=== PATIENT | male | born 1945 | race Caucasian/White ===

== ENCOUNTER → 2017-10-29 | Outpatient (CLI) | payer MEDICARE, BC ==
[~2017-10-29] MED LIST: DULO30CA43 PO; INSU100C4 SQ; INSU100V13 SQ; IOHEXOL 300 MG/ML 75 ML VIAL. IV ONE; LINA5TAB4 PO; PANT40TA5 PO; PROP10TA PO; [UNRECOGNIZED DRUG - OTHER]
--- NOTE | 2017-10-29 10:52 | RAD ---
CTA of the chest with contrast, 10/29/2017: History: Elevated d-dimer, shortness of breath, chest pain Multidetector CT imaging was performed following IV bolus injection of iodinated contrast material. Multiplanar reconstructions were produced including coronal and sagittal MIP images. No filling defects are seen in the main or lobar pulmonary arteries to suggest pulmonary emboli. Some of the smaller pulmonary were not optimally opacified. No definite pulmonary emboli are seen. There is moderate calcific plaquing of the thoracic aorta without evidence of aneurysm or dissection. Minimal coronary calcifications are noted. No mediastinal or hilar adenopathy is seen. There is a calcified granuloma in the right upper lobe. A moderate elongated streaky opacity in the right lower lobe probably represents atelectasis, although a component of pneumonia cannot be excluded. There is mild dependent atelectasis in the lungs. Additional scattered linear parenchymal opacities are compatible with scarring and/or atelectasis. No pleural fluid is evident. There is irregularity of the hepatic surface compatible with cirrhosis. An intrahepatic stent is in place extending into the inferior vena cava. This presumably represents a TIPS stent. The spleen is enlarged. There is a small to moderate volume of ascites in the upper abdomen. Mildly prominent lymph nodes at the celiac axis level appear unchanged since 01/11/2016. IMPRESSION: 1. No CT evidence of central pulmonary emboli. 2. Moderate discoid atelectasis in the right lung base. 3. Hepatic cirrhosis with splenomegaly and ascites. 4. TIPS stent in the liver. PQRS Compliance Statement: One or more of the following individualized dose reduction techniques were utilized for this examination: 1. Automated exposure control 2. Adjustment of the mA and/or kV according to patient size 3. Use of iterative reconstruction technique
== END | disposition home or self-care (01) ==
LOC: CT 09:39
PROVIDERS: ATTEND Family Medicine
DX: J98.11 Atelectasis (principal); K74.69 Other cirrhosis of liver; R16.1 Splenomegaly, not elsewhere classified; R18.8 Other ascites; I25.10 Atherosclerotic heart disease of native coronary artery without angina pectoris; J84.10 Pulmonary fibrosis, unspecified
CPT/HCPCS: 71275; Q9967

== ENCOUNTER 2019-08-15 08:49 | Inpatient (IN) | payer MEDICARE, BC ==
[~2019-08-15] VITALS: Ht 188 cm; Wt 114.8 kg
[~2019-08-15 08:49] MED LIST changes: +DULO-4 PO; -DULO30CA43 PO; -IOHEXOL 300 MG/ML 75 ML VIAL. IV ONE
[2019-08-15] MEDS: IV NORMAL SALINE 1,000ML 1,000 ML IV SCH (09:30)
[2019-08-15 09:37] VITALS: BP 122/78
[2019-08-15] MEDS ORDERED: LISI-334 PO (09:57)
[2019-08-15 10:09] LABS: ALBUMIN 2.6 g/dL (3.4-5.0); ALBUMIN/GLOBULIN RATIO 0.6 (1.0-1.7); CREATININE 1.1 mg/dL (0.7-1.3); GFR 65.4; POTASSIUM 3.8 mmol/L (3.5-5.1); TOTAL PROTEIN 6.8 g/dL (6.4-8.2)
[2019-08-15 10:53] LABS: INFLUENZA A PATIENT NEGATIVE (NEGATIVE); INFLUENZA B PATIENT NEGATIVE (NEGATIVE)
[2019-08-15 11:49] VITALS: BP 124/70
[2019-08-15 11:55] LABS: BILIRUBIN,URINE SMALL (NEG); CLARITY,URINE TURBID; COLOR,URINE BROWN; GLUCOSE,URINE 100 mg/dL (NEG)
[2019-08-15 11:56] LABS: UROBILINOGEN,URINE 8 mg/dL (0.2 mg/dL)
[2019-08-15 11:58] LABS: BACTERIA,URINE FEW /HPF (0-FEW); RBC,URINE >40 /HPF (0-2); SQUAMOUS EPITHELIAL CELL,UR FEW /LPF; WBC,URINE >40 /HPF (0-4)
--- NOTE | 2019-08-15 12:02 | EKG ---
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
--- NOTE | 2019-08-15 12:57 | RAD ---
CHEST PA LATERAL History: Shortness of breath Comparison: 10/29/2017 CT angiography of the chest. Findings: The cardiomediastinal silhouette is normal. Pulmonary vasculature is normal. Mild bibasilar linear atelectasis is present. No pleural effusion or pneumothorax is seen. There is no acute bone abnormality. Elevation of the right hemidiaphragm is present. Punctate subdiaphragmatic density again seen on the right. IMPRESSION: Minimal linear atelectasis at the lung bases. Electronically signed by: Donato Chavarria MD (08/15/2019 12:55 PM) [facility]
[2019-08-15] MEDS ORDERED: DEXTROSE 50% 25 GM / 50ML DISP.SYRIN. IV PRN (13:15)
--- NOTE | 2019-08-15 13:16 | RAD ---
Examination: CT ABDOMEN PELVIS WO CONTRAST History: Hematuria Comparison/Correlation: 01/11/2016 CT abdomen and pelvis without contrast Findings: Axial images of the abdomen and pelvis were obtained without contrast. Sagittal and coronal reformatted images were provided. The very superior aspect of the hepatic dome was not fully included which may limit assessment. Minimal linear atelectasis at the posterior right lung base is evident. Minimal perihepatic ascites noted. Hepatic cirrhosis is noted. TIPS noted. Borderline splenomegaly is present with the spleen measuring 14.1 cm longitudinal. Perisplenic varices are noted. Splenorenal varices are evident. No loculated collections about the pancreas.Rtranding of the upper abdominal fat is evident about the pancreas. Renal contours are unremarkable. No radiopaque collecting system I. Urinary bladder is mostly decompressed. Brachytherapy seeds are identified involving the prostate gland. No enlarged abdominal or pelvic lymph nodes. Appendix is normal. Moderate quantity of stool is present throughout the colon. Severe disc space narrowing at L2-3 is present. Neural foraminal narrowing bilaterally at L3-4 is present. Minimal retrolisthesis of L3 in relation to L4. Impression: Mild stranding of the upper abdominal fat about the pancreas noted. Minimal ascites. Correlate for underlying pancreatitis. Hepatic cirrhosis with associated findings of portal hypertension again identified. No radiopaque collecting system calculus. Renal contours are unchanged with no evidence of a mass lesion. Consider further imaging with CT IVP urogram with contrast exam if mastication is a persistent concern. PQRS Compliance Statement: One or more of the following individualized dose reduction techniques were utilized for this examination: 1. Automated exposure control 2. Adjustment of the mA and/or kV according to patient size 3. Use of iterative reconstruction technique Electronically signed by: Donato Chavarria MD (08/15/2019 1:13 PM) [facility]
[2019-08-15 13:34] LABS: BASO # 0.1 x10^3/uL (0.0-0.2); BASO % 1 % (0-3); EOS % 1 % (0-3); HEMATOCRIT 36.7 % (39.0-53.0); HEMOGLOBIN 12.4 g/dL (13.0-17.5); LYMPH # 0.8 x10^3/uL (1.0-4.8); LYMPH % 9 % (24-48); MEAN CORPUSCULAR HEMOGLOBIN 33 pg (25-35); MEAN CORPUSCULAR HGB CONC 34 g/dL (31-37); MEAN CORPUSCULAR VOLUME 96 fL (79-100); MONO # 0.8 x10^3/uL (0.0-1.1); MONO % 8 % (0-9); NEUT # 7.9 x10^3uL (1.8-7.7); NEUT % 82 % (31-73); PLATELET COUNT 70 x10^3/uL (140-400); RED BLOOD COUNT 3.82 x10^6/uL (4.30-5.70); RED CELL DISTRIBUTION WIDTH 15.5 % (11.5-14.5); WHITE BLOOD COUNT 9.7 x10^3/uL (4.0-11.0)
[2019-08-15] MEDS ORDERED: MORPHINE SULFATE 2 MG/ML DISP.SYRIN. IV PRN (13:45)
[2019-08-15 13:50] LABS: AMYLASE 50 U/L (25-115); LIPASE 168 U/L (73-393)
[2019-08-15 14:18] LABS: PLT ESTIMATE DECREASED (ADEQUATE)
[2019-08-15] MEDS: PROPRANOLOL 10 MG TABLET. PO SCH ×2 (15:16→22:53)
[2019-08-15 16:10] VITALS: BP 114/65
[2019-08-15] MEDS ORDERED: INSULIN LISPRO 300 UNITS/3 ML VIAL. SQ SCH (17:00)
[2019-08-15 20:11] VITALS: BP 99/56
[2019-08-15 22:53] VITALS: BP 126/70
[2019-08-15 23:17] LABS: HEMOGLOBIN A1C 6.4 % (4.8-5.6)
[2019-08-16] MEDS: IV NORMAL SALINE 1,000ML 1,000 ML IV SCH (01:56)
[2019-08-16 03:07] VITALS: BP 137/68
[2019-08-16] MEDS: INSULIN GLARGINE SQ SCH (08:24)
[2019-08-16] MEDS: LISINOPRIL 20 MG TABLET PO SCH (08:25)
[2019-08-16] MEDS: PROPRANOLOL 10 MG TABLET. PO SCH ×3 (08:25→20:58)
[2019-08-16] MEDS: LINAGLIPTIN 5 MG TABLET PO SCH (08:35)
[2019-08-16] MEDS: NOVOLOG FLEX SQ SCH ×3 (08:36→17:20)
[2019-08-16] MEDS ORDERED: INSULIN GLARGINE SYRINGE. SQ SCH (09:00)
[2019-08-16] MEDS ORDERED: IOHEXOL 350 MG/ML 100 ML VIAL. IV ONE (09:00)
--- NOTE | 2019-08-16 10:40 | RAD ---
CT ANGIOGRAPHY CHEST INDICATION: Dyspnea. Elevated d-dimer Comparison: Radiograph 08/15/2019. CTA 10/29/2017 TECHNIQUE: Following the uneventful administration of intravenous contrast, 75 cc Isovue-370, axial CT sections were obtained through the lungs and upper abdomen. Multiplanar reconstructions and MIP images were obtained. RS compliance statement: One or more of the following individualized dose reduction techniques were utilized for this examination: 1. Automated exposure control 2. Adjustment of the mA and/or kV according to patient size 3. Use of iterative reconstruction technique FINDINGS: Pulmonary vasculature: No evidence of pulmonary thromboembolic disease. Lungs and Airways: No pulmonary mass or consolidation. Asymmetric elevation of the right hemidiaphragm with right basilar relaxation atelectasis. No abnormality of the central airways. Pleura: The pleural spaces are normal. Heart and Mediastinum: The visualized thyroid is normal in size and attenuation. No axillary or supraclavicular lymphadenopathy. No mediastinal, hilar or retrocrural lymphadenopathy. Normal cardiac size. No pericardial effusion. Coronary artery atherosclerotic disease. Atherosclerosis of the thoracic aorta. Abdomen: Nodular hepatic contour. TIPS. Atherosclerosis of the abdominal aorta. Bones and Soft Tissues: Degenerative changes of the spine. IMPRESSION: 1. No evidence of pulmonary thromboembolic disease. 2. No pulmonary mass or consolidation. Electronically signed by: Yaniv Ramesh MD (08/16/2019 10:37 AM) [facility]
[2019-08-16] MEDS: APIXABAN 5 MG TABLET. PO SCH ×2 (11:28→20:59)
[2019-08-16 11:37] VITALS: BP 136/72
[2019-08-16] MEDS ORDERED: FLU VAX QS 2019-20 (36MOS+)/PF 0.5 ML SYRINGE. VAX IM ONE (13:45)
[2019-08-16 16:11] VITALS: BP 146/73
[2019-08-16 19:47] VITALS: BP 126/53
--- NOTE | 2019-08-16 20:21 | HP ---
ADMIT DATE: 08/15/2019 HISTORY OF PRESENT ILLNESS: A 74-year-old male came in. He had a 3-4 day history of generalized fever of 101.5 and so, also had gross hematuria as well as trouble breathing. He is having coughing spells and fairly getting more ill, getting dehydrated. The patient is a diabetic. He denies chest pain per se, but has had problems, multiple other medical issues that necessitated him coming into the hospital, since he was not progressing with outpatient therapy and progressively getting worse. The patient's current meds include NovoLog FlexPen, Toujeo Solostar, lisinopril, ____ Trulicity, propranolol 30, AndroGel pump. 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 ALLERGIES: None known. PAST SURGICAL HISTORY: Surgical arthroscopic exam of both knees, right total knee by Dr. Hawk, left total knee by Dr. Hawk and TIPS procedure as noted, the patient has also a history of high ammonia levels. FAMILY HISTORY: Mother of diabetes. Otherwise, his children are alive and well. SOCIAL HISTORY: The patient denies smoking, alcohol or drug use. The patient is , full code. REVIEW OF SYSTEMS: The patient has been having night sweats, fever, chills, sweats, despite the use of oral antibiotics and ____. The patient denies any chest pain, shortness of breath, abdominal pain. Denies any melena, hematochezia, hematemesis except for the fact that he is having his blood passed from his urine. PHYSICAL EXAMINATION: GENERAL: This is a pleasant white male, moderate amount of distress, looking quite ill. VITAL SIGNS: The patient's blood pressure 124/70, respiratory rate 18, pulse 74, afebrile, temperature ____ of 101. The patient's oxygen saturation good at 96%. HEENT: The patient's head was atraumatic, normocephalic. Eyes: PERRLA without jaundice. The mouth and throat were normal. NECK: Supple, without JVD or thyromegaly. LUNGS: The patient's lungs were diminished throughout, but basically diminished in the bases, but clear. CARDIOVASCULAR: Regular sinus rhythm, S1, S2, without murmur, rub, thrill, or extra heart sounds. ABDOMEN: Soft. Definite tenderness primarily in the epigastric area, but no rebounding, no guarding. Positive bowel sounds. EXTREMITIES: No clubbing, cyanosis, nor edema. NEUROLOGIC: The patient was alert and oriented x 3. LABORATORY DATA: The patient's white count was 9000, hemoglobin 12 and 36. Chemistries, however, showed an elevated total bilirubin of 3, AST elevated at 41. BNP slightly elevated at 634. Albumin low 2.6. Sodium, potassium, BUN and creatinine normal. Blood sugar was 172. The patient's D-dimer was elevated at 0.9 and therefore he had a scan done, which was negative for pulmonary emboli. His procalcitonin was elevated and his urine did show greater than 40 white blood cells and greater than 40 rbc's as well as specific gravity 1.030. IMPRESSION: Sepsis, urosepsis, dehydration, type 2 diabetes, hematuria, radiation proctitis and elevated D-dimer. PLAN: The patient will be admitted, placed on IV antibiotic therapy. Continue to monitor carefully, make further evaluation on him as indicated per those results and other blood tests are still pending. DEVON HOLT MD DR: CARLOS/fidencio JOB#: [id number] / [id number]
[2019-08-16] MEDS: LACTOBACILLUS RHAMNOSUS GG 1 CAPSULE. PO SCH (20:59)
[2019-08-16] MEDS ORDERED: ZOLPIDEM 5 MG TABLET. PO SCH (21:00)
[2019-08-16 23:55] VITALS: BP 128/73
[2019-08-17 05:53] VITALS: BP 131/70
[2019-08-17 06:16] LABS: BASO % 1 % (0-3); EOS # 0.4 x10^3/uL (0.0-0.7); EOS % 9 % (0-3); HEMATOCRIT 35.2 % (39.0-53.0); LYMPH # 1.3 x10^3/uL (1.0-4.8); LYMPH % 28 % (24-48); MEAN CORPUSCULAR HEMOGLOBIN 33 pg (25-35); MEAN CORPUSCULAR HGB CONC 34 g/dL (31-37); MEAN CORPUSCULAR VOLUME 96 fL (79-100); MONO # 0.5 x10^3/uL (0.0-1.1); MONO % 11 % (0-9); NEUT # 2.4 x10^3uL (1.8-7.7); NEUT % 52 % (31-73); PLATELET COUNT 49 x10^3/uL (140-400); RED BLOOD COUNT 3.65 x10^6/uL (4.30-5.70); RED CELL DISTRIBUTION WIDTH 15.7 % (11.5-14.5); WHITE BLOOD COUNT 4.6 x10^3/uL (4.0-11.0)
[2019-08-17 06:18] LABS: CREATININE 0.9 mg/dL (0.7-1.3); GFR 82.5; POTASSIUM 3.9 mmol/L (3.5-5.1)
[2019-08-17 06:59] LABS: PLT ESTIMATE DECREASED (ADEQUATE); POLYCHROMASIA PRESENT
[2019-08-17] MEDS: LACTOBACILLUS RHAMNOSUS GG 1 CAPSULE. PO SCH (08:10)
[2019-08-17] MEDS: APIXABAN 5 MG TABLET. PO SCH (08:11)
[2019-08-17] MEDS: PROPRANOLOL 10 MG TABLET. PO SCH ×2 (08:11→14:00)
[2019-08-17] MEDS: LISINOPRIL 20 MG TABLET PO SCH (08:11)
[2019-08-17] MEDS: LINAGLIPTIN 5 MG TABLET PO SCH (08:16)
[2019-08-17] MEDS: NOVOLOG FLEX SQ SCH ×2 (08:16→12:15)
[2019-08-17] MEDS: INSULIN GLARGINE SQ SCH (08:16)
[2019-08-17] MEDS ORDERED: levoFLOXacin 750 MG TABLET PO SCH (09:00)
[2019-08-17 10:18] VITALS: BP 136/87
[2019-08-17] MEDS ORDERED: CEPH-264 PO (12:59)
[2019-08-17] MEDS ORDERED: ZOLP5TAB PO (12:59)
[2019-08-17] MEDS ORDERED: LEVO750T31 PO (12:59)
[2019-08-17 14:00] VITALS: BP 136/87
--- NOTE | 2019-08-18 20:57 | DS ---
DATE OF DISCHARGE: 08/17/2019 HOSPITAL COURSE: The patient came in with a temperature upwards of 103 degrees. The patient was thought to be septic, he came in, he was given IV antibiotic therapy. Looked like, he had urosepsis. The patient otherwise made excellent progress during the rest of his hospitalization. His labs showed hemoglobin of 12 and 35. Chemistries were basically stable. Sugar slightly elevated, hemoglobin A1c 6.4. Troponins were negative. Amylase and lipase was negative. His procalcitonin was slightly elevated at 0.38. Albumin low at 2.6, total bilirubin elevated at 3. The patient's D-dimer was elevated. He had a CTA of the chest that showed no evidence of pulmonary emboli, mass, or consolidation in the lungs. The patient made good progress overall. He is seen down at . He has a fatty liver. He has ELAM, history of prostatic cancer, esophageal varices. IMPRESSION: Sepsis, urinary tract infection, organism is still unspecified exactly, it is a Staph aureus bug that was sensitive to trimethoprim/sulfa, which he was on and as a result of that that is what he was placed on as an outpatient. The patient has a history of prostate cancer as well as that of nonalcoholic steatohepatitis, cirrhosis of the liver, portal hypertension, and type 2 diabetes. DISPOSITION: The patient will be discharged home. MEDICATIONS: See MRAD. ACTIVITY: Decreased activity. PLAN: As above. DEVON HOLT MD DR: CARLOS/fidencio JOB#: [id number] / [id number]
== END 2019-08-17 14:33 | disposition home or self-care (01) | DRG 871 ==
LOC: 1 SOUTH 08:58
PROVIDERS: ADMIT Family Medicine; ATTEND Family Medicine
DX: A41.9 Sepsis, unspecified organism (principal); E43 Unspecified severe protein-calorie malnutrition; K76.6 Portal hypertension; N39.0 Urinary tract infection, site not specified; E11.9 Type 2 diabetes mellitus without complications; K62.7 Radiation proctitis; E78.1 Pure hyperglyceridemia; E86.0 Dehydration; I10 Essential (primary) hypertension; K74.60 Unspecified cirrhosis of liver; Z83.3 Family history of diabetes mellitus; Z85.46 Personal history of malignant neoplasm of prostate; M10.9 Gout, unspecified; R31.9 Hematuria, unspecified; Z68.32 Body mass index [BMI] 32.0-32.9, adult
CPT/HCPCS: 36415; 71046; 71275; 74176; 80048; 80053; 81001; 82150; 82550; 82947; 83036; 83540; 83550; 83605; 83690; 83880; 84145; 84484; 85025; 85379; 87086; 87186; 87804; 90471; 90686; 93005; J0696; J1815; J1956; Q9967; J7030

== ENCOUNTER 2019-09-17 10:02 | Inpatient (IN) | payer MEDICARE, BC ==
[~2019-09-17] VITALS: Ht 190.5 cm; Wt 110.9 kg
[~2019-09-17 10:02] MED LIST changes: +CEPH-264 PO; +LEVO750T31 PO; +LISI-334 PO; +ZOLP5TAB PO
[2019-09-17 10:35] VITALS: BP 125/73
[2019-09-17] MEDS ORDERED: ZOLPIDEM 5 MG TABLET. PO PRN (11:00)
[2019-09-17 11:24] LABS: BASO % 1 % (0-3); EOS # 0.4 x10^3/uL (0.0-0.7); EOS % 9 % (0-3); HEMATOCRIT 39.6 % (39.0-53.0); HEMOGLOBIN 13.5 g/dL (13.0-17.5); LYMPH # 1.4 x10^3/uL (1.0-4.8); LYMPH % 35 % (24-48); MEAN CORPUSCULAR HEMOGLOBIN 33 pg (25-35); MEAN CORPUSCULAR HGB CONC 34 g/dL (31-37); MEAN CORPUSCULAR VOLUME 97 fL (79-100); MONO # 0.5 x10^3/uL (0.0-1.1); MONO % 12 % (0-9); NEUT # 1.7 x10^3uL (1.8-7.7); NEUT % 44 % (31-73); PLATELET COUNT 91 x10^3/uL (140-400); RED BLOOD COUNT 4.08 x10^6/uL (4.30-5.70)
[2019-09-17] MEDS ORDERED: INSULIN LISPRO 300 UNITS/3 ML VIAL. SQ SCH (11:30)
[2019-09-17 11:32] LABS: ALBUMIN 2.6 g/dL (3.4-5.0); ALBUMIN/GLOBULIN RATIO 0.6 (1.0-1.7); CREATININE 1.1 mg/dL (0.7-1.3); GFR 65.4; POTASSIUM 4.5 mmol/L (3.5-5.1); TOTAL BILIRUBIN 1.7 mg/dL (0.2-1.0); TOTAL PROTEIN 7.3 g/dL (6.4-8.2)
[2019-09-17] MEDS ORDERED: DEXTROSE 50% 25 GM / 50ML DISP.SYRIN. IV PRN (12:30)
[2019-09-17] MEDS: PROPRANOLOL 10 MG TABLET. PO SCH ×2 (12:52→22:04)
[2019-09-17 12:55] LABS: BILIRUBIN,URINE NEG (NEG); CLARITY,URINE HAZY; COLOR,URINE AMBER; GLUCOSE,URINE NEG (NEG)
[2019-09-17 12:56] LABS: BACTERIA,URINE 0 /HPF (0-FEW); HYALINE CASTS, URINE OCC /HPF; NITRITE,URINE NEG (NEG); SQUAMOUS EPITHELIAL CELL,UR OCC /LPF; UROBILINOGEN,URINE 4 mg/dL (0.2 mg/dL)
[2019-09-17] MEDS: INSULIN LISPRO 300 UNITS/3 ML VIAL. SQ SCH ×2 (12:56→17:00)
--- NOTE | 2019-09-17 13:19 | EKG ---
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
--- NOTE | 2019-09-17 14:41 | RAD ---
Exam performed: 2 views of the chest. Indication: Cough Date of Service: 09/17/2019 11:28 AM . Comparison : Two-view chest from 08/15/2019 Findings: PA and lateral radiographs of the chest reveal a normal cardiomediastinal contour. The lungs are hyperinflated, however clear. No pleural fluid is seen. The visualized osseous structures are unremarkable. Impression: No acute cardiopulmonary process seen. Electronically signed by: Sole Wilhelm MD (09/17/2019 2:38 PM) [facility]
--- NOTE | 2019-09-17 14:47 | RAD ---
Exam performed: CT abdomen and pelvis without contrast. HISTORY: Hematuria. DATE OF SERVICE: 09/17/2019. COMPARISON: CT angiogram abdomen pelvis from 08/15/2019. TECHNIQUE: Contiguous helical acquisitions are obtained through the abdomen and pelvis without IV contrast. Sagittal and coronal reformatted images are obtained and reviewed. FINDINGS: Minimal bibasilar atelectasis. Visualized heart is normal. Unchanged mild hepatic cirrhosis with TIPS shunt noted. There is unchanged splenomegaly with varices of the splenic hilum extending up to the left kidney consistent with previously seen splenorenal varices. Gallbladder is distended. Pancreas appears normal with mild peripancreatic mesenteric stranding. This is unchanged. Both adrenal glands and bilateral kidneys are normal in size with no evidence of hydronephrosis or nephrolithiasis. Small and large bowel loops are nondilated and unremarkable. Appendix is not clearly seen. Urinary bladder is decompressed. The prostate gland, seminal vesicles and rectum appear normal. IMPRESSION: Cirrhosis with portal hypertension and TIPS shunt. Changes are stable. Mild peripancreatic and mesenteric stranding appears unchanged. Pancreatitis is possible however may also be chronic in etiology. Correlate clinically. PQRS Compliance Statement: One or more of the following individualized dose reduction techniques were utilized for this examination: 1. Automated exposure control 2. Adjustment of the mA and/or kV according to patient size 3. Use of iterative reconstruction technique Electronically signed by: Sole Wilhelm MD (09/17/2019 2:44 PM) [facility]
[2019-09-17 15:29] VITALS: BP 119/68
[2019-09-17] MEDS ORDERED: IOHEXOL 350 MG/ML 100 ML VIAL. IV ONE (18:00)
[2019-09-17] MEDS ORDERED: CONTRAST GIVEN MC PRN (18:15)
[2019-09-17] MEDS: GENTAMICIN PER PHARMACY MC PRN (19:21)
[2019-09-17 19:42] VITALS: BP 125/74
[2019-09-17] MEDS ORDERED: NORMAL SALINE IV ONE (20:00)
[2019-09-17] MEDS ORDERED: GENTAMICIN SULFATE IV ONE (20:00)
--- NOTE | 2019-09-17 21:54 | RAD ---
CTA Chest with contrast: Clinical History: Elevated d-dimer Shortness of breath. Axial helical images of the chest were obtained after the administration of Omni 350 cc IV and timed appropriately for a pulmonary arterial study. Conventional axial reconstruction was performed in addition to coronal, sagittal and bilateral oblique MIP (maximum intensity projection). This study was ordered to detect possible pulmonary embolism. There are no filling defects to suggest pulmonary embolism. There is linear opacities in the right lung base. There is no mediastinal or hilar lymphadenopathy. The thoracic aorta appears normal. There is cirrhosis of liver and portal hypertension with varices and mild splenomegaly. There is a portal venous shunt. There is mild portal lymphadenopathy likely reactive. Impression: 1. No evidence of pulmonary embolism. 2. Cirrhosis portal hypertension and portal venous stent. PQRS Compliance Statement: One or more of the following individualized dose reduction techniques were utilized for this examination: 1. Automated exposure control 2. Adjustment of the mA and/or kV according to patient size 3. Use of iterative reconstruction technique Electronically signed by: Jerald Matos III, MD (09/17/2019 9:51 PM) [id number]
[2019-09-17] MEDS: ZOLPIDEM 5 MG TABLET. PO SCH (22:05)
[2019-09-17 22:17] VITALS: BP 120/77
[2019-09-17] MEDS: [UNRECOGNIZED DRUG - OTHER] SQ SCH ×2 (22:24→22:43)
[2019-09-18 05:36] VITALS: BP 146/75
[2019-09-18] MEDS ORDERED: GENTAMICIN RANDOM LEVEL. MC ONE (06:00)
[2019-09-18 06:52] LABS: BASO % 1 % (0-3); EOS # 0.3 x10^3/uL (0.0-0.7); EOS % 8 % (0-3); HEMATOCRIT 37.1 % (39.0-53.0); HEMOGLOBIN 12.9 g/dL (13.0-17.5); LYMPH # 1.3 x10^3/uL (1.0-4.8); LYMPH % 33 % (24-48); MEAN CORPUSCULAR HEMOGLOBIN 33 pg (25-35); MEAN CORPUSCULAR HGB CONC 35 g/dL (31-37); MEAN CORPUSCULAR VOLUME 96 fL (79-100); MONO # 0.5 x10^3/uL (0.0-1.1); MONO % 12 % (0-9); NEUT # 1.8 x10^3uL (1.8-7.7); NEUT % 46 % (31-73); PLATELET COUNT 81 x10^3/uL (140-400); RED BLOOD COUNT 3.85 x10^6/uL (4.30-5.70); WHITE BLOOD COUNT 3.9 x10^3/uL (4.0-11.0)
[2019-09-18 06:58] LABS: CALCIUM 7.6 mg/dL (8.5-10.1); POTASSIUM 4.7 mmol/L (3.5-5.1)
[2019-09-18] MEDS: FUROSEMIDE 20 MG/2 ML VIAL IVP SCH (08:49)
[2019-09-18] MEDS: PROPRANOLOL 10 MG TABLET. PO SCH ×3 (08:49→20:08)
[2019-09-18] MEDS: LISINOPRIL 20 MG TABLET PO SCH (08:49)
[2019-09-18] MEDS: [UNRECOGNIZED DRUG - OTHER] SQ SCH ×2 (08:50→20:10)
[2019-09-18] MEDS ORDERED: levoFLOXacin 750 MG TABLET PO SCH (09:00)
[2019-09-18] MEDS: INSULIN LISPRO 300 UNITS/3 ML VIAL. SQ SCH ×3 (09:00→17:21)
[2019-09-18] MEDS ORDERED: LINAGLIPTIN 5 MG TABLET PO SCH (09:00)
[2019-09-18] MEDS ORDERED: FUROSEMIDE 20 MG TABLET PO SCH (09:00)
[2019-09-18 11:20] VITALS: BP 125/68
[2019-09-18] MEDS: GENTAMICIN PER PHARMACY MC PRN (13:33)
[2019-09-18 14:30] VITALS: BP 111/61
[2019-09-18 18:43] VITALS: BP 122/69
[2019-09-18] MEDS ORDERED: NORMAL SALINE IV SCH (20:00)
[2019-09-18] MEDS ORDERED: GENTAMICIN SULFATE IV SCH (20:00)
[2019-09-18] MEDS: ZOLPIDEM 5 MG TABLET. PO SCH (20:08)
--- NOTE | 2019-09-18 21:27 | PN ---
DATE: SUBJECTIVE: A 74-year-old male came in. Urine from outside cultures showed he had a MRSA urinary tract infection. He had been having hematuria and blood filled discharge from his urination. The patient was admitted to the hospital for IV antibiotic therapy and further evaluation on his MRSA infection. OBJECTIVE: VITAL SIGNS: Blood pressure 110/60, respiratory rate 20, pulse 70, afebrile. GENERAL: The patient is alert and oriented. LUNGS: Diminished throughout, but clear. CARDIOVASCULAR: Stable. ABDOMEN: Soft. The patient is making good progress overall. IMPRESSION: Urinary tract infection with Methicillin-resistant Staphylococcus aureus. Apparently, he has had this infection before that has not responded to outpatient therapy. We will continue on IV antibiotic therapy for now and try to get additional antibiotic coverage when he is ready to be discharged. DEVON HOLT MD DR: CARLOS/fidencio JOB#: [id number] / [id number]
[2019-09-18 23:00] VITALS: BP 113/70
[2019-09-19 05:50] VITALS: BP 131/76
[2019-09-19] MEDS: INSULIN LISPRO 300 UNITS/3 ML VIAL. SQ SCH ×2 (08:00→12:00)
[2019-09-19] MEDS: PROPRANOLOL 10 MG TABLET. PO SCH (08:11)
[2019-09-19] MEDS: LISINOPRIL 20 MG TABLET PO SCH (08:12)
[2019-09-19] MEDS: [UNRECOGNIZED DRUG - OTHER] SQ SCH (08:12)
[2019-09-19] MEDS: FUROSEMIDE 20 MG/2 ML VIAL IVP SCH (08:23)
[2019-09-19 08:28] LABS: INFLUENZA A PATIENT NEGATIVE (NEGATIVE); INFLUENZA B PATIENT NEGATIVE (NEGATIVE)
[2019-09-19] MEDS ORDERED: FUROSEMIDE 40 MG TABLET PO SCH (09:00)
[2019-09-19] MEDS ORDERED: LINE600T15 PO (09:02)
[2019-09-19 10:39] VITALS: BP 120/66
--- NOTE | 2019-09-21 10:49 | DS ---
DATE OF DISCHARGE: 09/19/2019 HOSPITAL COURSE: A 74-year-old male came in through the office. The patient had MRSA infection. He was feeling ill. He had not responded to oral antibiotics as an outpatient. The patient made good progress. He was placed on IV gentamicin and Levaquin, which seemed to really improve the patient's outcome. He made good progress during the rest of his hospitalization. He was discharged. Since it was MRSA, he was placed on Zyvox for further evaluation. He had a positive D-dimer. CTA was negative, just some cirrhosis and portal hypertension, portal venous stent, which he has had obviously before. Chest x-ray was unremarkable and basic labs were also unremarkable showing zauvzwae-zf-kxlina protein malnutrition. Otherwise, the patient made good progress during the rest of his hospitalization and was discharged home for further assessment as an outpatient. IMPRESSION: Systemic inflammatory response syndrome, urinary tract infection with methicillin-resistant Staphylococcus aureus, history of portal hypertension and cirrhosis, sjqdrryt-ox-ykbawj protein malnutrition, hyperbilirubinemia. PLAN: The patient will be discharged home. Regular diet, decreased activity, and have him follow up accordingly for repeat urine test. DEVON HOLT MD DR: CARLOS/fidencio JOB#: [id number] / [id number]
== END 2019-09-19 12:30 | disposition home or self-care (01) | DRG 689 ==
LOC: 1 SOUTH 10:02
PROVIDERS: ADMIT Family Medicine; ATTEND Family Medicine
DX: N39.0 Urinary tract infection, site not specified (principal); E43 Unspecified severe protein-calorie malnutrition; R65.10 Systemic inflammatory response syndrome (SIRS) of non-infectious origin without acute organ dysfunction; B95.62 Methicillin resistant Staphylococcus aureus infection as the cause of diseases classified elsewhere; Z68.30 Body mass index [BMI] 30.0-30.9, adult
CPT/HCPCS: 36415; 71046; 71275; 74176; 80048; 80053; 80170; 81001; 82150; 82550; 83605; 83690; 83880; 84484; 85025; 85379; 85610; 87804; 93005; J1580; J1815; J1956; Q9967

== ENCOUNTER → 2019-11-28 | Outpatient (CLI) | payer MEDICARE, BC ==
[~2019-11-28] MED LIST changes: +LINE600T15 PO
--- NOTE | 2019-11-28 10:19 | RAD ---
Right lower extremity venous duplex study 11/28/2019 10:16 AM Clinical History: Right lower extremity edema Technique: Using a combination of real time ultrasound imaging and color-flow and pulse Doppler imaging techniques, including spectral analysis, graded compression and augmentation, duplex evaluation of the deep venous system of the right lower extremity was performed. Multiple images were obtained. Findings: There is no sonographic evidence of deep venous thrombosis involving the visualized deep venous structures of the right lower extremity Impression: No evidence of deep venous thrombosis involving the right lower extremity Electronically signed by: Britton Hensley MD (11/28/2019 10:16 AM) [facility]
== END | disposition home or self-care (01) ==
LOC: US 09:44
PROVIDERS: ATTEND Internal Medicine Hematology & Oncology
DX: R22.41 Localized swelling, mass and lump, right lower limb (principal)
CPT/HCPCS: 93971

== ENCOUNTER → 2020-09-13 | Outpatient (CLI) | payer MEDICARE, BC ==
[~2020-09-13] MED LIST changes: -PANT40TA5 PO; +PANT40TA6 PO
[2020-09-13 12:51] LABS: BASO % 0 % (0-3); EOS # 0.1 x10^3/uL (0.0-0.7); EOS % 4 % (0-3); HEMATOCRIT 34.9 % (39.0-53.0); HEMOGLOBIN 11.5 g/dL (13.0-17.5); LYMPH # 0.8 x10^3/uL (1.0-4.8); LYMPH % 23 % (24-48); MEAN CORPUSCULAR HEMOGLOBIN 33 pg (25-35); MEAN CORPUSCULAR HGB CONC 33 g/dL (31-37); MEAN CORPUSCULAR VOLUME 99 fL (79-100); MONO # 0.4 x10^3/uL (0.0-1.1); MONO % 12 % (0-9); NEUT # 2.1 x10^3uL (1.8-7.7); NEUT % 61 % (31-73); PLATELET COUNT 89 x10^3/uL (140-400); RED BLOOD COUNT 3.53 x10^6/uL (4.30-5.70); RED CELL DISTRIBUTION WIDTH 15.5 % (11.5-14.5); WHITE BLOOD COUNT 3.4 x10^3/uL (4.0-11.0)
[2020-09-13 12:58] LABS: CALCIUM 8.7 mg/dL (8.5-10.1); CREATININE 1.1 mg/dL (0.7-1.3); GFR 65.3; POTASSIUM 4.2 mmol/L (3.5-5.1)
--- NOTE | 2020-09-13 13:04 | RAD ---
PQRS Compliance Statement: One or more of the following individualized dose reduction techniques were utilized for this examination: 1. Automated exposure control 2. Adjustment of the mA and/or kV according to patient size 3. Use of iterative reconstruction technique CT ABDOMEN PELVIS WO CONTRAST Clinical Indication: Reason: GENERALIZED ABDOMINAL PAIN, PELVIC SWELLING Comparison: CT abdomen and pelvis without contrast, September 17, 2019. Technique: Helical CT imaging of the abdomen and pelvis is performed without IV or oral contrast. Findings: Evaluation of solid organs and bowel is limited without oral and IV contrast, decreasing sensitivity for detection of pathology. Chronic atelectasis or scarring in the right lung base. Great vessels normal caliber. Coronary artery disease. Cardiac size normal. Mild mitral annular calcification. Cirrhosis, portal hypertension, and TIPS shunt redemonstrated. There is splenorenal shunt. Interval development of moderate abdominal and pelvic ascites. The gallbladder pancreas, and adrenal glands are normal. Atherosclerotic abdominal aorta, no aneurysm. There is no hydronephrosis. There is no obvious abnormality of the stomach. There is no dilated small bowel. The appendix is normal. There is no colon wall thickening. There is induration of the mesentery. Urinary bladder is normal. There are prostate fiducials. Fluid in a small right inguinal hernia. Grade 1 retrolisthesis of L3 on L4 and L2 on L3. Vacuum disc phenomenon lower lumbar spine. Disc space narrowing and endplate irregularity of L2/L3. IMPRESSION: 1. Interval development of moderate abdominal and pelvic ascites. Cannot exclude TIPS dysfunction. 2. Redemonstrated cirrhosis, portal hypertension, splenorenal varices, and TIPS shunt. 3. Chronic atelectasis or scarring in the right lung base. Electronically signed by: Myron Kaur MD (09/13/2020 1:01 PM) [id number]
[2020-09-13 13:07] LABS: BACTERIA,URINE 0 /HPF (0-FEW); BILIRUBIN,URINE MOD (NEG); CLARITY,URINE CLEAR; COLOR,URINE AMBER; GLUCOSE,URINE NEG (NEG); NITRITE,URINE POS (NEG); RBC,URINE RARE /HPF (0-2); WBC,URINE 0 /HPF (0-4)
[2020-09-13 13:10] LABS: ALBUMIN 2.8 g/dL (3.4-5.0); ALBUMIN/GLOBULIN RATIO 0.6 (1.0-1.7); TOTAL BILIRUBIN 2.4 mg/dL (0.2-1.0); TOTAL PROTEIN 7.6 g/dL (6.4-8.2)
== END ==
LOC: CT 11:37
PROVIDERS: ATTEND Family Medicine
DX: K40.90 Unilateral inguinal hernia, without obstruction or gangrene, not specified as recurrent (principal); I70.0 Atherosclerosis of aorta; I10 Essential (primary) hypertension; J98.11 Atelectasis; R19.09 Other intra-abdominal and pelvic swelling, mass and lump; Z79.899 Other long term (current) drug therapy
CPT/HCPCS: 36415; 74176; 80053; 81001; 82977; 83690; 83880; 85025; 85379; 87086

== ENCOUNTER 2020-10-01 10:34 | Emergency (ER) | payer MEDICARE, BC ==
[~2020-10-01] VITALS: Ht 190.5 cm; Wt 115.5 kg
--- NOTE | 2020-10-01 10:57 | PHYS DOC ---
Past History Past Medical History: Cancer, Diabetes Past Surgical History: Knee Replacement Smoking: Non-smoker Alcohol Use: None Drug Use: None Adult General Chief Complaint Chief Complaint: SHORTNESS OF BREATH HPI HPI Patient is a 75yo male presenting via POV for SHOB. He was sent by PCP, has known history of liver cirrhosis from what patient states is from fatty liver disease. He is established with GI team at [facility] and had first paracentesis ever performed at [facility] ~2 months ago. He states ~6.5L were drawn off. He reports worsening abdominal ascites that has been causing him more shortness of breath for past 72 hours. He discussed case with his PCP who advised he seek care at his local ER for evaluation and paracentesis. No fever, no URI-like symptoms, no AP or changes in bladder or bowel function Review of Systems Review of Systems Fourteen body systems of review of systems have been reviewed. See HPI for pertinent positives and negative responses, other robbins all other systems are negative, non-pertinent or non-contributory Allergies Allergies Allergies Coded Allergies Type Severity Reaction Last Updated Verified I S O L A T I O N *CONTACT* Allergy Unknown 10/01/20 Yes NKMA Allergy Unknown 10/01/20 Yes Physical Exam Physical Exam Constitutional: Well developed, well nourished, no acute distress, non-toxic appearance. HENT: Normocephalic, atraumatic, bilateral external ears normal, oropharynx moist, no oral exudates, nose normal. Eyes: PERRLA, EOMI, conjunctiva normal, no discharge. Neck: Normal range of motion, no tenderness, supple, no stridor. Cardiovascular: Heart rate regular, sinus rhythm, no murmurs rubs or gallops Lungs & Thorax: Inc work of breathing, no resp distress, mild accessory muscle usage noted in abdomen. CTAB Abdomen: Bowel sounds normal, prominent and fluid filled consistent with ascites, positive fluid wave, no tenderness, no masses, no pulsatile masses. Nonsurgical abdomen, no peritoneal signs Skin: Warm, dry, no erythema, no rash. Back: No tenderness, no CVA tenderness. Extremities: No tenderness, no cyanosis, no clubbing, ROM intact, no edema. Neurologic: Alert and oriented X 3, grossly normal motor & sensory function, no focal deficits noted. Psychologic: Affect normal, judgement normal, mood normal. Current Patient Data Vital Signs Vital Signs Date Time Temp Pulse Resp B/P (MAP) Pulse Ox O2 Delivery O2 Flow Rate FiO2 10/01/20 14:32 97.5 73 27 159/86 (110) 96 Room Air Lab Results Laboratory Tests Test 10/01/20 11:24 White Blood Count 2.4 x10^3/uL (4.0-11.0) Red Blood Count 3.38 x10^6/uL (4.30-5.70) Hemoglobin 11.1 g/dL (13.0-17.5) Hematocrit 33.6 % (39.0-53.0) Mean Corpuscular Volume 99 fL (79-100) Mean Corpuscular Hemoglobin 33 pg (25-35) Mean Corpuscular Hemoglobin Concent 33 g/dL (31-37) Red Cell Distribution Width 14.9 % (11.5-14.5) Platelet Count 68 x10^3/uL (140-400) Neutrophils (%) (Auto) 59 % (31-73) Lymphocytes (%) (Auto) 22 % (24-48) Monocytes (%) (Auto) 13 % (0-9) Eosinophils (%) (Auto) 6 % (0-3) Basophils (%) (Auto) 0 % (0-3) Neutrophils # (Auto) 1.4 x10^3uL (1.8-7.7) Lymphocytes # (Auto) 0.5 x10^3/uL (1.0-4.8) Monocytes # (Auto) 0.3 x10^3/uL (0.0-1.1) Eosinophils # (Auto) 0.1 x10^3/uL (0.0-0.7) Basophils # (Auto) 0.0 x10^3/uL (0.0-0.2) Segmented Neutrophils % 60 % (35-66) Band Neutrophils % 2 % (0-9) Lymphocytes % 22 % (24-48) Atypical Lymphocytes % (Manual) 3 % (0-0) Monocytes % 7 % (0-10) Eosinophils % 6 % (0-5) Platelet Estimate Decreased (ADEQUATE) Polychromasia Slight Anisocytosis Slight Prothrombin Time 12.5 SEC (9.4-11.4) Prothromb Time International Ratio 1.2 (0.9-1.1) Activated Partial Thromboplast Time 25 SEC (23-33) Sodium Level 140 mmol/L (136-145) Potassium Level 4.3 mmol/L (3.5-5.1) Chloride Level 106 mmol/L (98-107) Carbon Dioxide Level 28 mmol/L (21-32) Anion Gap 6 (6-14) Blood Urea Nitrogen 16 mg/dL (8-26) Creatinine 1.1 mg/dL (0.7-1.3) Estimated GFR (Cockcroft-Gault) 65.3 BUN/Creatinine Ratio 15 (6-20) Glucose Level 173 mg/dL (70-99) Calcium Level 8.9 mg/dL (8.5-10.1) Total Bilirubin 2.2 mg/dL (0.2-1.0) Aspartate Amino Transf (AST/SGOT) 46 U/L (15-37) Alanine Aminotransferase (ALT/SGPT) 36 U/L (16-63) Alkaline Phosphatase 100 U/L (46-116) Troponin I Quantitative 0.018 ng/mL (0-0.055) Total Protein 7.1 g/dL (6.4-8.2) Albumin 2.6 g/dL (3.4-5.0) Albumin/Globulin Ratio 0.6 (1.0-1.7) EKG EKG EKG ordered and interpreted by myself at 1125 hrs. as sinus rhythm at 75 bpm, unremarkable intervals, left axis deviation, no acute ischemic findings, no STEMI Radiology/Procedures Radiology/Procedures CHEST AP ONLY History: Reason: Shortness of breath/ Spl. Instructions: / History: Comparison: September 17, 2019 Findings: Low lung volumes. Patchy bibasilar opacities. No pleural effusion. No pneumothorax. Normal heart size. Mild elevation of the right hemidiaphragm, unchanged. Impression: 1. Low lung lines with patchy bibasilar opacities, likely atelectasis. Electronically signed by: Jose Raul Thomas DO (10/01/2020 11:46 AM) [id number] Heart Score Risk Factors: Risk Factors: DM, Current or recent (<one month) smoker, HTN, HLP, family history of CAD, obesity. Risk Scores: Risk Factors: DM, Current or recent (<one month) smoker, HTN, HLP, family history of CAD, obesity. Course & Med Decision Making Course & Med Decision Making Pertinent Labs and Imaging studies reviewed. (See chart for details) Patient without fever or other systemic sxs, no concern for SBP needing paracentesis. I fear given appearance he will require large volume to be drawn off. I contacted GI team and subsequent hospitalist team at [facility] who agreed need for transfer and admission for paracentesis and monitoring after procedure as indicated. PCP updated on plan of care and amenable. I updated patient on plan of care and he was amenable. He requested traveling to [facility] via POV, he has full capacity and able to weigh risks and benefits after lengthy discussion. He ultimately left our facilty for transport to [facility] via POV in stable condition Dragon Disclaimer Dragon Disclaimer This electronic medical record was generated, in whole or in part, using a voice recognition dictation system. Departure Departure: Impression: Primary Impression: Cirrhosis of liver with ascites Disposition: 02 DC/TRF OTHER SHORT TERM HOS ([facility]) Admitting Physician: Other (Dr Lakhani) Condition: STABLE Referrals: DEVON HOLT MD (PCP) DULCE ROJAS DO Oct 01, 2020 10:57
[2020-10-01 11:39] LABS: BASO % 0 % (0-3); EOS # 0.1 x10^3/uL (0.0-0.7); EOS % 6 % (0-3); HEMATOCRIT 33.6 % (39.0-53.0); HEMOGLOBIN 11.1 g/dL (13.0-17.5); LYMPH # 0.5 x10^3/uL (1.0-4.8); LYMPH % 22 % (24-48); MEAN CORPUSCULAR HEMOGLOBIN 33 pg (25-35); MEAN CORPUSCULAR HGB CONC 33 g/dL (31-37); MEAN CORPUSCULAR VOLUME 99 fL (79-100); MONO # 0.3 x10^3/uL (0.0-1.1); MONO % 13 % (0-9); NEUT # 1.4 x10^3uL (1.8-7.7); NEUT % 59 % (31-73); PLATELET COUNT 68 x10^3/uL (140-400); RED BLOOD COUNT 3.38 x10^6/uL (4.30-5.70); RED CELL DISTRIBUTION WIDTH 14.9 % (11.5-14.5); WHITE BLOOD COUNT 2.4 x10^3/uL (4.0-11.0)
[2020-10-01 11:46] LABS: CALCIUM 8.9 mg/dL (8.5-10.1); CREATININE 1.1 mg/dL (0.7-1.3); GFR 65.3; POTASSIUM 4.3 mmol/L (3.5-5.1)
--- NOTE | 2020-10-01 11:48 | RAD ---
CHEST AP ONLY History: Reason: Shortness of breath/ Spl. Instructions: / History: Comparison: September 17, 2019 Findings: Low lung volumes. Patchy bibasilar opacities. No pleural effusion. No pneumothorax. Normal heart size. Mild elevation of the right hemidiaphragm, unchanged. Impression: 1. Low lung lines with patchy bibasilar opacities, likely atelectasis. Electronically signed by: Jose Raul Thomas DO (10/01/2020 11:46 AM) [id number]
[2020-10-01 11:52] LABS: ALBUMIN 2.6 g/dL (3.4-5.0); ALBUMIN/GLOBULIN RATIO 0.6 (1.0-1.7); TOTAL BILIRUBIN 2.2 mg/dL (0.2-1.0); TOTAL PROTEIN 7.1 g/dL (6.4-8.2)
[2020-10-01 12:10] LABS: % ATYL 3 % (0-0); % BANDS 2 % (0-9); % EOS 6 % (0-5); % LYMPHS 22 % (24-48); % MONOS 7 % (0-10); % SEGS 60 % (35-66); PLT ESTIMATE DECREASED (ADEQUATE)
[2020-10-01 12:14] LABS: ANISOCYTOSIS SLIGHT; POLYCHROMASIA SLIGHT
[2020-10-01 14:32] VITALS: BP 159/86
--- NOTE | 2020-10-01 14:48 | EKG ---
[address] [address] Test Date: 2020-10-01 Test Time: 11:21:36 Pat Name: YOUSUF MCKOY Department: Room: Gender: M Strategy Execution Consultant: SALINAS : 1945 Requested By: DULCE ROJAS Order Number: [id number] Reading MD: Virgilio Dooley Measurements Intervals Gravity Rate: 74 P: 16 IL: 144 QRS: -29 QRSD: 86 T: 10 QT: 400 QTc: 444 Interpretive Statements SINUS RHYTHM LEFTWARD AXIS Electronically Signed On 10-02-2020 10:24:58 MANAGER FASHION by Virgilio Dooley
== END 2020-10-01 14:39 | disposition short-term general hospital (02) ==
LOC: ER 10:34
DX: K74.69 Other cirrhosis of liver (principal); R06.02 Shortness of breath; E11.9 Type 2 diabetes mellitus without complications; Z85.9 Personal history of malignant neoplasm, unspecified; Z98.890 Other specified postprocedural states; Z88.8 Allergy status to other drugs, medicaments and biological substances
CPT/HCPCS: 36415; 71045; 80053; 84484; 85007; 85025; 85610; 85730; 93005; 99285

== ENCOUNTER 2020-11-22 04:22 | Emergency (ER) | payer MEDICARE, BC ==
[~2020-11-22] VITALS: Ht 190.5 cm; Wt 115.5 kg
[2020-11-22 04:22] VITALS: BP 140/77
--- NOTE | 2020-11-22 04:49 | PHYS DOC ---
Past History Past Medical History: Cancer, Depression, Diabetes, Liver Disease (Ascities), Other Additional Past Medical Histor: PROSTATE CA 6 YEARS AGO, HAD RADIATION [place] (LINDSEY JACKSON DO) Past Surgical History: Knee Replacement (LINDSEY JACKSON DO) Smoking: Non-smoker Alcohol Use: None Drug Use: None (LINDSEY JACKSON DO) General Adult EDM: Chief Complaint: SHORTNESS OF BREATH HPI: HPI: 75-year-old male presents with report of shortness of breath that occurred upon waking this morning to go to the restroom. Patient was recently diagnosed with COVID-19 on 11/16/2020. Patient does have a history of liver disease with cirrhosis requiring paracentesis. Patient reports last paracentesis was approximately 1 week ago at [facility]. Patient reports his abdomen does not feel overly distended and does not think he needs paracentesis at this time. Reports subjective fever and chills. Denies trauma. (LINDSEY JACKSON DO) Review of Systems: Review of Systems: Constitutional: Reports fever and chills and generalized malaise Eyes: Denies redness or eye pain HENT: Denies nasal congestion or sore throat Respiratory: Reports cough and shortness of breath Cardiovascular: Denies chest pain or palpitations GI: Denies abdominal pain, nausea, or vomiting : Denies dysuria or hematuria Musculoskeletal: Denies back pain or joint pain Integument: Denies rash or skin lesions Neurologic: Denies headache, focal weakness or sensory changes Complete systems were reviewed and found to be within normal limits, except as documented in this note. (LINDSEY JACKSON DO) Allergies: Allergies: Allergies Coded Allergies Type Severity Reaction Last Updated Verified I S O L A T I O N *CONTACT* Allergy Unknown 10/01/20 Yes NKMA Allergy Unknown 10/01/20 Yes (LINDSEY JACKSON DO) Physical Exam: PE: Constitutional: Well developed, well nourished, no acute distress, non-toxic appearance HENT: Normocephalic, atraumatic Eyes: PERRL, EOMI, conjunctiva normal, no discharge Neck: Normal range of motion, no tenderness, supple Lungs & Thorax: Mild respiratory distress, increased work of breathing, equal chest rise and fall Abdomen: Soft, mildly distended abdomen, nontender Skin: Warm, dry, no erythema, no rash Back: No tenderness, no CVA tenderness Extremities: No tenderness, ROM intact, no edema Neurologic: Alert and oriented X 3, no focal deficits noted Psychologic: Affect normal, judgment normal (LINDSEY JACKSON DO) EKG: EKG: @ 0516 NSR at 88 bpm, some baseline artifact noted primarily to aVL, NO ST elevation, LAFB, QRS 86ms, QT/QTc 396/483ms (LINDSEY JACKSON DO) Radiology/Procedures: Radiology/Procedures: [] (LINDSEY JACKSON DO) Course & Med Decision Making: Course & Med Decision Making Pertinent Labs and Imaging studies reviewed. (See chart for details) Patient presents via EMS with report of dyspnea with exertion upon waking this morning. Patient with history of recently testing positive for COVID-19. Patient also with history of liver disease requiring paracentesis. Reports last paracentesis approximately 1 week ago. Abdomen does not appear to require paracentesis at this time. Patient was found to be hypoxic upon EMS arrival. Improved with supplemental O2. EKG stable. Labs obtained and posted to chart. Chronic pancytopenia again noted. Ammonia 62. Slightly elevated troponin noted. ASA given. CTA chest pending. 0600- Sign out given to Dr. Cid for further evaluation and treatment. Discussed current findings and plan with patient, who acknowledges understanding and agreement. (LINDSEY JACKSON DO) Course & Med Decision Making Assumed care of patient from Dr. Jackson. At checkout CT angio is pending. CT angios suggestive of Covid. Patient will be transferred to [place] per Dr. Jackson recommendations as he feels the patient will soon need a paracentesis which we are unable to do here. Patient has been accepted by Dr. Hancock. (NATALIE CID MD) Miranda Disclaimer: Miranda Disclaimer: This electronic medical record was generated, in whole or in part, using a voice recognition dictation system. (LINDSEY JACKSON DO) Departure Departure: Impression: Primary Impression: Dyspnea Qualified Codes: R06.00 - Dyspnea, unspecified Additional Impressions: Hypoxia COVID-19 Hyperammonemia Elevated troponin Disposition: DC/TRF OTHER SHORT TERM HOS Condition: STABLE Referrals: DEVON HOLT MD (PCP) Critical Care Time Critical care time was 30 minutes which includes time at bedside, spent in discussion of patient's care with specialists and/or family members, with interpretation of laboratory and/or radiological studies and is exclusive of procedures. (LINDSEY JACKSON DO) LINDSEY JACKSON DO Nov 22, 2020 04:49 NATALIE CID MD Nov 22, 2020 12:48
[2020-11-22] MEDS ORDERED: IV NORMAL SALINE 1,000ML 1,000 ML IV ONE (05:00)
[2020-11-22] MEDS ORDERED: DEXAMETHASONE SOD PHOS 4 MG/ML VIAL. IVP ONE (05:00)
[2020-11-22] MEDS ORDERED: ASPIRIN ENTERIC COATED 325 MG TABLET.DR. PO ONE (05:00)
[2020-11-22] MEDS ORDERED: IOHEXOL 350 MG/ML 100 ML VIAL. IV ONE (05:15)
[2020-11-22] MEDS ORDERED: CONTRAST GIVEN. MC PRN (05:15)
[2020-11-22 05:24] LABS: BASO % 0 % (0-3); EOS % 0 % (0-3); HEMATOCRIT 32.2 % (39.0-53.0); HEMOGLOBIN 10.8 g/dL (13.0-17.5); LYMPH # 0.2 x10^3/uL (1.0-4.8); LYMPH % 7 % (24-48); MEAN CORPUSCULAR HEMOGLOBIN 32 pg (25-35); MEAN CORPUSCULAR HGB CONC 34 g/dL (31-37); MEAN CORPUSCULAR VOLUME 95 fL (79-100); MONO # 0.4 x10^3/uL (0.0-1.1); MONO % 13 % (0-9); NEUT # 2.7 x10^3uL (1.8-7.7); NEUT % 80 % (31-73); PLATELET COUNT 77 x10^3/uL (140-400); RED BLOOD COUNT 3.39 x10^6/uL (4.30-5.70); RED CELL DISTRIBUTION WIDTH 14.7 % (11.5-14.5); WHITE BLOOD COUNT 3.4 x10^3/uL (4.0-11.0)
[2020-11-22 05:33] LABS: CALCIUM 8.1 mg/dL (8.5-10.1); GFR 72.8; POTASSIUM 3.9 mmol/L (3.5-5.1)
[2020-11-22 05:50] LABS: ALBUMIN 2.6 g/dL (3.4-5.0); ALBUMIN/GLOBULIN RATIO 0.7 (1.0-1.7); MAGNESIUM 1.6 mg/dL (1.8-2.4); TOTAL BILIRUBIN 2.2 mg/dL (0.2-1.0); TOTAL PROTEIN 6.5 g/dL (6.4-8.2)
--- NOTE | 2020-11-22 06:09 | RAD ---
Study: CT CHEST WITH CONTRAST - PULMONARY ANGIOGRAM History: Dyspnea, hypoxia, history of COVID Comparison: CTA chest 09/17/2019 Technique: Helical CT of the chest performed after the administration of 100 mL Omnipaque 350 intrav enous contrast and timed for angiographic evaluation of the pulmonary arteries per PE protocol. Coron al and sagittal 3D MIP reformations were obtained. One or more of the following individualized dose reduction techniques were utilized for this examinat ion: 1. Automated exposure control 2. Adjustment of the mA and/or kV according to patient size 3. Use of iterative reconstruction technique. Findings: Pulmonary Arteries: There is motion artifact. Contrast bolus is adequate. No definite acute pulmonary embolism. Heart/Systemic Vasculature: The heart is normal in size. No pericardial effusion. There are coronary artery calcifications. Thoracic aorta is normal in caliber with mild calcified atherosclerosis. Mediastinum: No lymphadenopathy. Lungs: There are patchy groundglass and bandlike opacities throughout the lungs, greatest in the base s. No pleural effusion. Mild airway wall thickening.. Neck/Axilla/Body Wall: Normal. Upper Abdomen: The liver is cirrhotic. A TIPS is present. Moderate ascites is seen in the upper abdom en. There are portosystemic collateral vessels in the upper abdomen. Bones: No acute osseous abnormality. IMPRESSION: 1. No acute pulmonary embolism. 2. Groundglass and bandlike opacities throughout both lungs consistent with atypical infection. 3. Cirrhosis with TIPS and moderate ascites. Electronically signed by: Edwina Nguyễn MD (11/22/2020 6:07 AM) [id number]
--- NOTE | 2020-11-22 10:09 | EKG ---
[address] [address] Test Date: 2020-11-22 Test Time: 05:16:47 Pat Name: YOUSUF MCKOY Department: Room: Gender: M Assembly Detailer: True : 1945 Requested By: LINDSEY JACKSON Order Number: [id number] Reading MD: Measurements Intervals Jackson Rate: 88 P: 30 NM: 166 QRS: -30 QRSD: 86 T: 29 QT: 396 QTc: 483 Interpretive Statements SINUS RHYTHM ABNORMAL LEFT AXIS DEVIATION LEFT ANTERIOR FASCICULAR BLOCK PROLONGED QT ABNORMAL ECG RI6.02 No previous ECG available for comparison
== END 2020-11-22 08:08 | disposition short-term general hospital (02) ==
LOC: ER 04:22
DX: U07.1 COVID-19 (principal); R06.00 Dyspnea, unspecified; E72.20 Disorder of urea cycle metabolism, unspecified; R77.8 Other specified abnormalities of plasma proteins; R09.02 Hypoxemia; E11.9 Type 2 diabetes mellitus without complications; Z88.8 Allergy status to other drugs, medicaments and biological substances
CPT/HCPCS: 36415; 71275; 80053; 82140; 82553; 83605; 83735; 83880; 84484; 85025; 85379; 85610; 85730; 87040; 93005; 96361; 96374; 99285; J1100; J7030; Q9967